=== PATIENT | female | born 1995 | race African-American/Black ===

== ENCOUNTER 2016-07-12 12:38 | Emergency (ER) | payer MEDICAID ==
[~2016-07-12] VITALS: Ht 149.9 cm; Wt 68.2 kg
[~2016-07-12 12:38] MED LIST: AUGM875T PO; DICL75TA PO
[2016-07-12 12:39] VITALS: BP 134/78; PULSE 93; RESP 14; TEMP 98.4; O2SAT 98
--- NOTE | 2016-07-12 13:48 | PD ---
HPI Chief Complaint: Related Problem Time Seen by Provider: 13:33 Travel History International Travel<30 days: No Contact w/Intl Traveler<30days: No Traveled to known affect area: No History of Present Illness HPI 20-year-old never female presents to the emergency department complaining of nausea, from urination, feeling tired, and having a positive test at home. She should for tests are positive. Her Last menstrual period was June 26. She states she took a test because she had a little bit of abnormal spotting on July 09. She came in today because her mom encourage her to see if she was or not. History Past Medical History Medical History: Denies Significant Hx LMP: 06/26/2016 Social History Alcohol Use: No Tobacco Use: No Allergies-Medications (Allergen,Severity, Reaction): Coded Allergies: No Known Allergies (Unverified , 07/12/16) Reported Meds & Prescriptions Reported Meds & Active Scripts Active Augmentin (Amoxicillin-Clavulanate) 875-125 mg Tab 875 Mg PO BID 10 Days not for use in CrCl <30 ml/min. Diclofenac Sodium DR (Diclofenac Sodium) 75 Mg Tabdr 75 Mg PO Q8HR PRN Review of Systems Except as stated in HPI: all other systems reviewed are Neg Physical Exam Narrative GENERAL: Well-appearing 20-year-old woman, no acute distress. SKIN: Warm and dry. CV: Warm and well perfused Pulmonary: Normal rate and effort Abdominal: Abdomen soft, nontender. Data Data Last Documented VS Vital Signs Date Time Temp Pulse Resp B/P Pulse Ox O2 Delivery O2 Flow Rate FiO2 07/12/16 12:39 98.4 93 14 134/78 98 Room Air Orders Ed Urine Pregnancytest Poc (07/12/16 13:35) [facility] Medical Decision Making Medical Screen Exam Complete: Yes Emergency Medical Condition: Yes Interpretation(s) [id number] hCG is negative Differential Diagnosis , cervicitis, UTI, anxiety, other Narrative Course Medical decision making 20-year-old young woman presents emergent department complaining that she may be . Point of care is negative. Patient is requesting a blood test, I don't think is any indication for this. Recommend repeat urine test in one week. We'll check urine, GC chlamydia. Diagnosis Primary Impression: Possible Additional Instructions: Repeat home test in one week. If follow-up with your primary physician. Return to the emergency department for any abdominal pain, or any other new or worsening symptoms. Med/Other Pt SpecificInfo: No Change to Meds Disposition: 01 DISCHARGE HOME Condition: Stable Golden Be MD Jul 12, 2016 13:48
[2016-07-12 14:16] LABS: BACTERIA, URINE FEW /hpf; COMMENT (UR) CULT NOT INDICATED; CULTURE IF INDICATED CULT NOT INDICATED; GLUCOSE,URINE NEG (NEG); KETONE, URINE NEG (NEG); MUCUS URINE FEW /lpf (OCC); NITRITE,URINE NEG (NEG); PH, URINE 7.5 (5.0-8.5); SQUAMOUS EPITHELIAL CELL URINE 24 /hpf (0-5); TRANSITIONAL EPI CELLS, URINE <1 /hpf; URINE COLOR YELLOW (YELLW/STRAW)
[2016-07-12 14:17] LABS: BLOOD, URINE TRACE (NEG)
[2016-07-12 14:31] VITALS: BP 129/74; PULSE 87; RESP 16; TEMP 98.4; O2SAT 98
[2016-07-12 17:34] LABS: CHLAMYDIA PCR NOT DETECTED (NOT DETECT); NEISSERIA PCR NOT DETECTED (NOT DETECT)
== END 2016-07-12 14:33 | disposition home or self-care (01) ==
LOC: NEPE 12:38
DX: R11.0 Nausea (principal)
CPT/HCPCS: 81001; 84703; 87491; 87591; 99284

== ENCOUNTER 2016-07-20 07:26 | Emergency (ER) | payer MEDICAID ==
[~2016-07-20] VITALS: Ht 149.9 cm; Wt 73.0 kg
[2016-07-20 07:28] VITALS: BP 124/65; PULSE 118; RESP 18; TEMP 99.5; O2SAT 95
--- NOTE | 2016-07-20 08:04 | PD ---
HPI Chief Complaint: ENT Complaint Time Seen by Provider: 08:02 Travel History International Travel<30 days: No Contact w/Intl Traveler<30days: No Traveled to known affect area: No History of Present Illness HPI Patient comes in for evaluation of a sore throat that began yesterday. Patient denies any known fevers, nausea, vomiting, diarrhea, pain, chest pain, shortness of breath, or cough. Patient's pain is worse with swallowing. Denies anything making it better but has tried drinking tea and sucking on peppermints. Denies any radiation of the pain. Describes pain as a scratching- like sensation in her throat. PFSH Past Medical History Hx Anticoagulant Therapy: No Cardiovascular Problems: No Chemotherapy: No Cerebrovascular Accident: No Diabetes: No Diminished Hearing: No Endocrine: No Genitourinary: No Immune Disorder: No Implanted Vascular Access Dvce: No Musculoskeletal: No Neurologic: No Psychiatric: No Respiratory: No Immunizations Current: Yes ?: Unknown LMP: 06/26/16 Past Surgical History Hysterectomy: No Tonsillectomy: Yes Other Surgery: Yes (RIGHT ARM ARTERY REPAIR WITH LEFT LEG SVG) Social History Alcohol Use: No Tobacco Use: No Substance Use: Yes (MARIJUANA 2X DAY) Allergies-Medications (Allergen,Severity, Reaction): Coded Allergies: No Known Allergies (Unverified , 07/20/16) Reported Meds & Prescriptions Reported Meds & Active Scripts Active Augmentin (Amoxicillin-Clavulanate) 875-125 mg Tab 875 Mg PO BID 10 Days not for use in CrCl <30 ml/min. Diclofenac Sodium DR (Diclofenac Sodium) 75 Mg Tabdr 75 Mg PO Q8HR PRN Review of Systems Except as stated in HPI: all other systems reviewed are Neg Physical Exam Narrative GENERAL: Well-developed, overly nourished, in no acute distress, and non-ill appearing. SKIN: Warm and dry. HEAD: Atraumatic. Normocephalic. EYES: Pupils equal and round. EOMI. No scleral icterus. No injection or drainage. ENT: No nasal bleeding or discharge. Mucous membranes pink and moist. Tympanic membranes pearly lemus bilaterally. Posterior pharynx mildly erythematous without exudate. Uvula is midline. No tenderness to facial sinuses to palpation. Patient speaking in full sentences and swallowing her own saliva. NECK: Trachea midline. No cervical lymphadenopathy. Supple. No nuclear rigidity. CARDIOVASCULAR: Regular rate and rhythm. No murmur appreciated. RESPIRATORY: No accessory muscle use. No respiratory distress. Clear to auscultation. Breath sounds equal bilaterally. MUSCULOSKELETAL: No obvious deformities. No clubbing. No cyanosis. No edema. Full range of motion. NEUROLOGICAL: Awake and alert. No obvious cranial nerve deficits. Motor grossly within normal limits. Normal speech. PSYCHIATRIC: Appropriate mood and affect; insight and judgment normal. Data Data Last Documented VS Vital Signs Date Time Temp Pulse Resp B/P Pulse Ox O2 Delivery O2 Flow Rate FiO2 07/20/16 07:28 99.5 118 18 124/65 95 Room Air Orders Group A Rapid Strep Screen (07/20/16 08:01) Strep Culture (Group A) (07/20/16 08:20) Naproxen (Naprosyn) (07/20/16 09:15) MDM Medical Decision Making Medical Screen Exam Complete: Yes Emergency Medical Condition: Yes Differential Diagnosis Strep pharyngitis, viral pharyngitis, viral syndrome, other Narrative Course Patient looks great, non-ill appearing. The patient is tolerating fluids and is well hydrated. Appears viral pharyngitis with viral symptom complex. No clinical evidence by history or evaluation to suspect meningitis and/or sepsis. There was no evidence to suggest peritonsillar abscess or retropharyngeal abscess. I discussed with the patient, diagnosis, plan of care and to follow up with the patients primary physician. The patient was instructed to return if the worsens in anyway, especially if not tolerating fluids, increased pain or swelling, difficulty swallowing or breathing, or as needed. The patient agreed with plan. Patient in no obvious distress upon re-evaluation. All pertinent laboratory result(s) discussed with patient. Patient was asked if they wanted to speak to my attending, which the patient did not wish to do at this time. Any questions/ concerns in reference to patient diagnosis/condition discussed and clarified prior to patient's discharge. Reinforced sheer importance of close follow up with patient's primary physician or primary care clinic. Instructed patient to return to ED immediately, if symptoms return/worsen. Pt showed understanding of above instructions. Further instructions and recommendations were detailed in discharge paperwork. Pt ambulated without difficulty out of ED at discharge. Diagnosis Primary Impression: Viral pharyngitis Patient Instructions: General Instructions, Pharyngitis (ED) Additional Instructions: Follow-up with your primary care physician this week for reevaluation. Use over -the-counter Tylenol and/or ibuprofen as needed for symptomatic relief. Drink plenty of non-caffeinated and nonalcoholic fluids. Return to the emergency department if symptoms get worse. Disposition: 01 DISCHARGE HOME Condition: Stable Tong Lanier Jul 20, 2016 08:04
[2016-07-20] MEDS ORDERED: NAPROXEN 500 MG TAB PO ONE (09:15)
== END 2016-07-20 09:22 | disposition home or self-care (01) ==
LOC: NEPB 07:26
DX: J02.9 Acute pharyngitis, unspecified (principal)
CPT/HCPCS: 87081; 87880; 99283

== ENCOUNTER 2016-09-06 09:01 | Emergency (ER) | payer MEDICAID ==
[~2016-09-06] VITALS: Ht 149.9 cm; Wt 82.0 kg
[2016-09-06 09:02] VITALS: BP 116/64; PULSE 89; RESP 15; TEMP 98.2; O2SAT 98
[2016-09-06] MEDS ORDERED: PREN29TA PO (09:22)
--- NOTE | 2016-09-06 09:33 | PD ---
HPI Chief Complaint: Cold / Flu Symptoms Time Seen by Provider: 09:15 Travel History International Travel<30 days: No Contact w/Intl Traveler<30days: No Traveled to known affect area: No History of Present Illness HPI This is a 20-year-old female who presents today with complaints of 2 weeks of cough congestion. Patient also reports darker colored urine than normal. She states that she's not eating well because of the cough. She denies any fevers but does state she has slight chills. There are no ill contacts. Eyes a history of asthma or reactive airway disease. She denies any vaginal discharge or vaginal bleeding. She does report loose bowel movements but no true diarrhea. PFSH Past Medical History Medical History: Denies Significant Hx Hx Anticoagulant Therapy: No Cardiovascular Problems: No Chemotherapy: No Cerebrovascular Accident: No Diabetes: No Diminished Hearing: No Endocrine: No Genitourinary: No Immune Disorder: No Implanted Vascular Access Dvce: No Musculoskeletal: No Neurologic: No Psychiatric: No Respiratory: No Immunizations Current: Yes Tetanus Vaccination: > 5 Years Influenza Vaccination: No ?: Not LMP: 08/24/16 : 1 Para: 0 Miscarriage: 1 : 0 Past Surgical History Hysterectomy: No Tonsillectomy: Yes Other Surgery: Yes (RIGHT ARM ARTERY REPAIR WITH LEFT LEG SVG) Social History Alcohol Use: Yes (RARELY ) Tobacco Use: No Substance Use: Yes (MARIJUANA SOME DAYS) Allergies-Medications (Allergen,Severity, Reaction): Coded Allergies: No Known Allergies (Unverified , 09/06/16) Reported Meds & Prescriptions Reported Meds & Active Scripts Active Guaifenesin Liq (Guaifenesin) 100 mg/5 ML Soln 100 Mg PO Q6H PRN Zithromax Z-Yaniv (Azithromycin) 250 Mg Dspk 250 Mg PO DIRECTED 500 MG (2 tabs) day 1, then 1 tab days 2-5. Reported Plus Iron 29-1 mg ( Vit-Iron Carbonyl) 1 Tab Tab 1 Tab PO DAILY Review of Systems Except as stated in HPI: all other systems reviewed are Neg General / Constitutional: Positive: Chills, No: Fever HENT: No: Headaches, Lightheadedness Cardiovascular: No: Chest Pain or Discomfort, Palpitations Respiratory: Positive: Cough, Wheezing Gastrointestinal: Positive: Nausea, Vomiting, Diarrhea (loose bowel movements) , No: Abdominal Pain Genitourinary: Positive: Frequency, Other (her urine than normal), No: Discharge, Vaginal Bleeding Musculoskeletal: No: Weakness, Pain Skin: No Rash Neurologic: No: Weakness, Headache Physical Exam Narrative GENERAL: Well-nourished, well-developed patient. SKIN: Warm and dry. HEAD: Normocephalic/atraumatic. EYES: No scleral icterus. No injection or drainage. NECK: Supple, trachea midline. CARDIOVASCULAR: Regular rate and rhythm without murmurs, gallops, or rubs. RESPIRATORY: Diffuse expiratory wheezing in the upper and lower airways. No Rales appreciated GASTROINTESTINAL: Abdomen soft, non-tender, nondistended. MUSCULOSKELETAL: No cyanosis, or edema. NEUROLOGICAL: Awake and alert. Cranial nerves II through XII intact. Motor grossly within normal limits. Five out of 5 muscle strength in all muscle groups. Normal speech. Data Data Last Documented VS Vital Signs Date Time Temp Pulse Resp B/P Pulse Ox O2 Delivery O2 Flow Rate FiO2 09/06/16 11:00 95 18 112/74 97 Room Air 09/06/16 09:02 98.2 Orders Complete Blood Count With Diff (09/06/16 09:33) Comprehensive Metabolic Panel (09/06/16 09:33) Urinalysis - C+S If Indicated (09/06/16 09:33) Iv Access Insert/Monitor (09/06/16 09:33) Ecg Monitoring (09/06/16 09:33) Oximetry (09/06/16 09:33) Oxygen Administration (09/06/16 09:33) Chest, Single Ap (09/06/16 09:33) Sodium Chloride 0.9% Flush (Ns Flush) (09/06/16 09:45) Albuterol-Ipratropium Neb (Duoneb Neb) (09/06/16 09:45) Albuterol Neb (Albuterol Neb) (09/06/16 09:45) Ed Urine Pregnancytest Poc (09/06/16 09:33) Labs Laboratory Tests Test 09/06/16 09/06/16 09:40 09:45 Urine Color YELLOW Urine Turbidity HAZY Urine pH 6.0 Urine Specific [place] 1.031 Urine Protein 30 mg/dL Urine Glucose (UA) NEG mg/dL Urine Ketones NEG mg/dL Urine Occult Blood SMALL Urine Nitrite NEG Urine Bilirubin NEG Urine Urobilinogen 2.0 MG/DL Urine Leukocyte Esterase NEG Urine RBC 12 /hpf Urine WBC 1 /hpf Urine Squamous Epithelial 9 /hpf Cells Urine Bacteria RARE /hpf Urine Hyaline Casts 1 /lpf Urine Mucus MOD /lpf Microscopic Urinalysis Comment CULT NOT INDICATED White Blood Count 8.7 TH/MM3 Red Blood Count 4.68 MIL/MM3 Hemoglobin 12.7 GM/DL Hematocrit 38.7 % Mean Corpuscular Volume 82.7 FL Mean Corpuscular Hemoglobin 27.1 PG Mean Corpuscular Hemoglobin 32.7 % Concent Red Cell Distribution Width 14.8 % Platelet Count 262 TH/MM3 Mean Platelet Volume 9.7 FL Neutrophils (%) (Auto) 69.2 % Lymphocytes (%) (Auto) 20.0 % Monocytes (%) (Auto) 8.2 % Eosinophils (%) (Auto) 2.2 % Basophils (%) (Auto) 0.4 % Neutrophils # (Auto) 6.0 TH/MM3 Lymphocytes # (Auto) 1.7 TH/MM3 Monocytes # (Auto) 0.7 TH/MM3 Eosinophils # (Auto) 0.2 TH/MM3 Basophils # (Auto) 0.0 TH/MM3 CBC Comment DIFF FINAL Differential Comment Sodium Level 138 MEQ/L Potassium Level 3.8 MEQ/L Chloride Level 105 MEQ/L Carbon Dioxide Level 26.0 MEQ/L Anion Gap 7 MEQ/L Blood Urea Nitrogen 8 MG/DL Creatinine 0.81 MG/DL Estimat Glomerular Filtration 110 ML/MIN Rate Random Glucose 92 MG/DL Calcium Level 8.8 MG/DL Total Bilirubin 0.6 MG/DL Aspartate Amino Transf 18 U/L (AST/SGOT) Alanine Aminotransferase 21 U/L (ALT/SGPT) Alkaline Phosphatase 82 U/L Total Protein 8.5 GM/DL Albumin 3.8 GM/DL [facility] Medical Decision Making Medical Screen Exam Complete: Yes Emergency Medical Condition: Yes Differential Diagnosis Bronchitis versus pneumonia versus postnasal drip Narrative Course 20-year-old female presents with URI-type symptoms. Patient's had cough with congestion 2 weeks. The patient is afebrile. On examination, she has coarse rhonchi however chest x-ray shows no evidence of acute infiltrates. Given the longevity of her symptoms, I will treat her with azithromycin Z-Yaniv. She's also been given a prescription for guaifenesin for cough. Diagnosis Primary Impression: Bronchitis Med/Other Pt SpecificInfo: Prescription(s) given Scripts Guaifenesin Liq 100 mg/5 ML [id number] Mg PO Q6H PRN (COUGH) #1 BOTTLE Ref 0 Prov:Yunier Duffy MD 09/06/16 Azithromycin (Zithromax Z-Yaniv)250 Mg [id number] Mg PO DIRECTED #1 DSPK Ref 0 500 MG (2 tabs) day 1, then 1 tab days 2-5. Prov:Yunier Duffy MD 09/06/16 Disposition: 01 DISCHARGE HOME Condition: Stable Yunier Duffy MD Sep 06, 2016 09:33 Condition: Stable Yunier Duffy MD Sep 06, 2016 09:33
[2016-09-06] MEDS ORDERED: SODIUM CHLORIDE 0.9% FLUSH 5 ML FLUSH IVF PRN (09:45)
[2016-09-06] MEDS: RESP: ALBUTEROL 2.5 MG/IPRATROPIUM 0.5 MG NEB (SCH) INH ×2 (09:49→09:50)
--- NOTE | 2016-09-06 09:56 | RADRPT ---
EXAM DATE/TIME: 09/06/2016 09:31 [place] COMPARISON: CHEST SINGLE AP, June 10, 2016, 17:01. INDICATIONS : Short of breath, cough, tightness in chest, vomiting, abdominal cramping. MEDICAL HISTORY : None. SURGICAL HISTORY : None. ENCOUNTER: Initial ACUITY: 3 weeks PAIN SCORE: 8/10 LOCATION: Bilateral chest FINDINGS: A single view of the chest demonstrates the lungs to be symmetrically aerated without evidence of mas s, infiltrate or effusion. The cardiomediastinal contours are unremarkable. Osseous structures are intact. CONCLUSION: No acute disease. Everton Thomas MD on September 06, 2016 at 9:55 Board Certified Radiologist. This report was verified electronically.
[2016-09-06 10:03] LABS: BASOPHIL % 0.4 % (0.0-2.0); EOSINOPHIL # 0.2 TH/MM3 (0-0.4); EOSINOPHIL % 2.2 % (0.0-4.0); HEMATOCRIT 38.7 % (35.0-46.0); HEMO FLAGS DIFF FINAL; LYMPHOCYTE # 1.7 TH/MM3 (1.0-4.8); MEAN CELL VOLUME 82.7 FL (80.0-100.0); MEAN CORPUSCULAR HEMOGLOBIN 27.1 PG (27.0-34.0); MEAN CORPUSCULAR HGB CONC 32.7 % (32.0-36.0); MONO % 8.2 % (0.0-8.0); NEUT % 69.2 % (16.0-70.0); PLATELET COUNT 262 TH/MM3 (150-450); RED BLOOD COUNT 4.68 MIL/MM3 (4.00-5.30); RED CELL DISTRIBUTION WIDTH 14.8 % (11.6-17.2); WHITE BLOOD COUNT 8.7 TH/MM3 (4.0-11.0)
[2016-09-06 10:09] LABS: BACTERIA, URINE RARE /hpf; BLOOD, URINE SMALL (NEG); COMMENT (UR) CULT NOT INDICATED; CULTURE IF INDICATED CULT NOT INDICATED; GLUCOSE,URINE NEG (NEG); HYALINE CAST, URINE 1 /lpf (RARE); KETONE, URINE NEG (NEG); MUCUS URINE MOD /lpf (OCC); NITRITE,URINE NEG (NEG); SQUAMOUS EPITHELIAL CELL URINE 9 /hpf (0-5); URINE COLOR YELLOW (YELLW/STRAW)
[2016-09-06 10:24] LABS: ANION GAP 7 MEQ/L (5-15); AST (GOT) 18 U/L (16-38); BLOOD UREA NITROGEN 8 MG/DL (7-18); CHLORIDE 105 MEQ/L (98-107); GLOMERULAR FILTRATION RATE 110 ML/MIN (>89); POTASSIUM 3.8 MEQ/L (3.5-5.1); SODIUM (NA) 138 MEQ/L (136-145)
[2016-09-06 10:25] LABS: ALKALINE PHOSPHATASE 82 U/L (45-117); ALT (GPT) 21 U/L (9-42); TOTAL BILIRUBIN ADULT 0.6 MG/DL (0.2-1.0)
[2016-09-06 11:00] VITALS: BP 112/74; PULSE 95; RESP 18; O2SAT 97
[2016-09-06] MEDS ORDERED: ZITHTAB PO (11:12)
[2016-09-06] MEDS ORDERED: GUAI100S7 PO (11:12)
[2016-09-06] MEDS: RESP: ALBUTEROL 2.5 MG/3 ML NEB (SCH) INH (11:14)
== END 2016-09-06 11:58 | disposition home or self-care (01) ==
LOC: NEPC 09:01
DX: J40 Bronchitis, not specified as acute or chronic (principal)
CPT/HCPCS: 71010; 80053; 81001; 84703; 85025; 94640; 94664; 99283; J7613

== ENCOUNTER 2016-09-09 20:36 | Emergency (ER) | payer MEDICAID ==
[~2016-09-09] VITALS: Ht 149.9 cm; Wt 81.0 kg
[~2016-09-09 20:36] MED LIST changes: -AUGM875T PO; -DICL75TA PO; +GUAI100S7 PO; +PREN29TA PO; +ZITHTAB PO
[2016-09-09 20:51] VITALS: BP 117/77; PULSE 89; RESP 16; TEMP 98.1; O2SAT 98
[2016-09-10 01:05] VITALS: BP 125/87; PULSE 84; RESP 18; O2SAT 97
--- NOTE | 2016-09-10 01:23 | PD ---
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 Patient states that she has passed several large dark-colored clots. Patient also complains of generalized weakness and feeling lightheaded. Patient's last menstrual period was 08/24/16 and normal for her. Patient states she is sexually active and has been trying to become . Patient is 1 para 0 AB 1. Review of medical records indicates patient has been here several times with complaint of cramping and spotting and requesting test to be performed. Patient also states she did have an episode of posttussive emesis that she has been treated recently for bronchitis. Patient denies other concerns or complaints. Presently patient rates her pain 0/10 in intensity. PFSH Past Medical History Narrative Medical Ab1; vessel transposition left lower extremity to right upper extremity; no tobacco use; nursing notes reviewed Hx Anticoagulant Therapy: No Cardiovascular Problems: No Chemotherapy: No Cerebrovascular Accident: No Diabetes: No Diminished Hearing: No Endocrine: No Genitourinary: No Immune Disorder: No Implanted Vascular Access Dvce: No Musculoskeletal: No Neurologic: No Psychiatric: No Respiratory: No Immunizations Current: Yes Tetanus Vaccination: Unknown Influenza Vaccination: No ?: Unknown LMP: 08/24/16 : 1 Para: 0 Miscarriage: 1 : 0 Past Surgical History Hysterectomy: No Tonsillectomy: Yes Other Surgery: Yes (RIGHT ARM ARTERY REPAIR WITH LEFT LEG SVG) Social History Alcohol Use: Yes (RARELY ) Tobacco Use: No Substance Use: Yes (MARIJUANA SOME DAYS) Allergies-Medications (Allergen,Severity, Reaction): Coded Allergies: No Known Allergies (Unverified , 09/09/16) Reported Meds & Prescriptions Reported Meds & Active Scripts Active Metrogel Vaginal Gel (Metronidazole Vaginal Gel) 0.75 % Gel 1 Appl VAGINAL HS Reported Plus Iron 29-1 mg ( Vit-Iron Carbonyl) 1 Tab Tab 1 Tab PO DAILY Review of Systems Except as stated in HPI: all other systems reviewed are Neg Physical Exam Narrative GENERAL: Well-developed well-nourished female in no acute distress no respiratory distress SKIN: Warm and dry. HEAD: Normocephalic. EYES: No scleral icterus. No injection or drainage. NECK: Supple, trachea midline. No JVD or lymphadenopathy. CARDIOVASCULAR: Regular rate and rhythm without murmurs, gallops, or rubs. RESPIRATORY: Breath sounds equal bilaterally. No accessory muscle use. GASTROINTESTINAL: Abdomen soft, non-tender, nondistended. Pelvic exam: Normal external exam no redness induration or lesions and no blood; speculum exam scant old blood mucus no clots no active bleeding cervical os closed; bimanual exam no adnexal mass or tenderness no cervical motion tenderness no uterine enlargement or tenderness. MUSCULOSKELETAL: No cyanosis, or edema. BACK: Nontender without obvious deformity. No CVA tenderness. Data Data Last Documented VS Vital Signs Date Time Temp Pulse Resp B/P Pulse Ox O2 Delivery O2 Flow Rate FiO2 09/10/16 01:40 81 17 126/87 86 18 127/89 88 20 130/88 09/10/16 01:05 97 Room Air 09/09/16 20:51 98.1 Orders Complete Blood Count With Diff (09/10/16 01:04) Basic Metabolic Panel (Bmp) (09/10/16 01:04) Gc And Chlamydia Pcr (09/10/16 01:04) Wet Prep Profile (09/10/16 01:04) Urinalysis - C+S If Indicated (09/10/16 01:04) Ed Urine Pregnancytest Poc (09/10/16 01:04) Orthostatic Vital Signs (09/10/16 01:04) Potassium Chloride (Kcl) (09/10/16 02:30) Labs Laboratory Tests Test 09/10/16 09/10/16 09/10/16 01:10 01:20 01:25 Urine Color YELLOW Urine Turbidity CLEAR Urine pH 5.5 Urine Specific [place] 1.031 Urine Protein TRACE mg/dL Urine Glucose (UA) NEG mg/dL Urine Ketones 80 mg/dL Urine Occult Blood SMALL Urine Nitrite NEG Urine Bilirubin NEG Urine Urobilinogen LESS THAN 2.0 MG/DL Urine Leukocyte Esterase NEG Urine RBC 12 /hpf Urine WBC 2 /hpf Urine Squamous Epithelial 2 /hpf Cells Urine Mucus MANY /lpf Microscopic Urinalysis Comment CULT NOT INDICATED Clue Cells (Wet Prep) PRESENT Vaginal Trichomonas (Wet Prep) NONE SEEN Vaginal Yeast (Wet Prep) NONE SEEN White Blood Count 9.5 TH/MM3 Red Blood Count 4.76 MIL/MM3 Hemoglobin 13.3 GM/DL Hematocrit 39.1 % Mean Corpuscular Volume 82.2 FL Mean Corpuscular Hemoglobin 27.9 PG Mean Corpuscular Hemoglobin 33.9 % Concent Red Cell Distribution Width 14.3 % Platelet Count 299 TH/MM3 Mean Platelet Volume 9.3 FL Neutrophils (%) (Auto) 64.1 % Lymphocytes (%) (Auto) 27.0 % Monocytes (%) (Auto) 7.5 % Eosinophils (%) (Auto) 0.8 % Basophils (%) (Auto) 0.6 % Neutrophils # (Auto) 6.1 TH/MM3 Lymphocytes # (Auto) 2.6 TH/MM3 Monocytes # (Auto) 0.7 TH/MM3 Eosinophils # (Auto) 0.1 TH/MM3 Basophils # (Auto) 0.1 TH/MM3 CBC Comment DIFF FINAL Differential Comment Sodium Level 139 MEQ/L Potassium Level 3.3 MEQ/L Chloride Level 103 MEQ/L Carbon Dioxide Level 27.7 MEQ/L Anion Gap 8 MEQ/L Blood Urea Nitrogen 9 MG/DL Creatinine 0.75 MG/DL Estimat Glomerular Filtration 120 ML/MIN Rate Random Glucose 90 MG/DL Calcium Level 9.1 MG/DL MDM Medical Decision Making Medical Screen Exam Complete: Yes Emergency Medical Condition: Yes Medical Record Reviewed: Yes Interpretation(s) POC hcg: negative cbc: values all wnl CBC & BMP Diagram 09/10/16 01:25 Wet prep clue cells Differential Diagnosis Dysfunctional uterine bleeding, menses, , UTI, anemia Narrative Course Specimens collected; orthostatic measurements obtained; [id number] test ordered; we'll obtain CBC to evaluate for anemia orthostatic measurements to evaluate for volume status [id number] test to be performed to assess for specimens collected for wet prep GC and gonorrhea suspicion low for STI. Patient will be encouraged to follow-up with [facility] for evaluation for dysfunctional uterine bleeding and difficulty with becoming . Lab values grossly within normal range patient shows no evidence of inflammation and infection or anemia CBC chemistries are within normal limits except for mild hypokalemia and patient is given replacement potassium in the emergency department [id number] hCG is negative wet prep is remarkable for clue cells and patient is stable for a patient management with the setting measurements showed no significant variance supine sitting or standing. Patient informed of lab results in stable for outpatient management. Diagnosis Primary Impression: Dysfunctional uterine bleeding Additional Impressions: Vaginosis Hypokalemia Referrals: [facility] call for appointment Primary Care Physician call for appointment Patient Instructions: General Instructions Additional Instructions: Increase fluid hydration Add potassium containing foods and beverages to dietary intake Follow-up with your primary care physician and [facility] Return to the emergency department for any concerns or change in condition Scripts Metronidazole Vaginal Gel (Metrogel Vaginal Gel)0.75 % Gel1 Appl VAGINAL HS #1 TUBE Ref 0 Prov:Naomi Do MD 09/10/16 Disposition: DISCHARGE HOME Condition: Stable Naomi Do MD Sep 10, 2016 01:23
[2016-09-10 01:40] VITALS: BP_SYST 126; BP_SYST 130; BP_DIAS 87; BP_DIAS 88; RESP 17; RESP 20
[2016-09-10 01:42] LABS: AUTOMATED NEUTROPHIL # 6.1 TH/MM3 (1.8-7.7); BASOPHIL # 0.1 TH/MM3 (0-0.2); BASOPHIL % 0.6 % (0.0-2.0); EOSINOPHIL # 0.1 TH/MM3 (0-0.4); EOSINOPHIL % 0.8 % (0.0-4.0); HEMATOCRIT 39.1 % (35.0-46.0); HEMO FLAGS DIFF FINAL; LYMPHOCYTE # 2.6 TH/MM3 (1.0-4.8); MEAN CELL VOLUME 82.2 FL (80.0-100.0); MEAN CORPUSCULAR HEMOGLOBIN 27.9 PG (27.0-34.0); MEAN CORPUSCULAR HGB CONC 33.9 % (32.0-36.0); MONO % 7.5 % (0.0-8.0); NEUT % 64.1 % (16.0-70.0); PLATELET COUNT 299 TH/MM3 (150-450); RED BLOOD COUNT 4.76 MIL/MM3 (4.00-5.30); RED CELL DISTRIBUTION WIDTH 14.3 % (11.6-17.2); WHITE BLOOD COUNT 9.5 TH/MM3 (4.0-11.0)
[2016-09-10 01:57] LABS: BICARBONATE 27.7 MEQ/L (21.0-32.0); POTASSIUM 3.3 MEQ/L (3.5-5.1)
[2016-09-10 01:59] LABS: BLOOD, URINE SMALL (NEG); COMMENT (UR) CULT NOT INDICATED; CULTURE IF INDICATED CULT NOT INDICATED; GLUCOSE,URINE NEG (NEG); KETONE, URINE 80 mg/dL (NEG); MUCUS URINE MANY /lpf (OCC); NITRITE,URINE NEG (NEG); PH, URINE 5.5 (5.0-8.5); SQUAMOUS EPITHELIAL CELL URINE 2 /hpf (0-5); URINE COLOR YELLOW (YELLW/STRAW)
[2016-09-10] MEDS ORDERED: METR0.7528 VAGINAL (02:19)
[2016-09-10] MEDS ORDERED: POTASSIUM CHLORIDE 20 MEQ CONTROLLED RELEASE TAB PO ONE (02:30)
[2016-09-10 02:35] VITALS: BP 115/78
[2016-09-10 03:20] LABS: CHLAMYDIA PCR DETECTED (NOT DETECT); NEISSERIA PCR NOT DETECTED (NOT DETECT)
== END 2016-09-10 02:35 | disposition home or self-care (01) ==
LOC: NEPC 20:36
DX: N93.8 Other specified abnormal uterine and vaginal bleeding (principal); N76.0 Acute vaginitis; E87.6 Hypokalemia
CPT/HCPCS: 80048; 81001; 84703; 85025; 87210; 87491; 87591; 99283

== ENCOUNTER 2017-06-22 18:37 | Emergency (ER) | payer MEDICAID ==
[~2017-06-22] VITALS: Ht 149.9 cm; Wt 77.5 kg
[~2017-06-22 18:37] MED LIST changes: -GUAI100S7 PO; +METR0.7528 VAGINAL; -ZITHTAB PO
[2017-06-22 18:39] VITALS: BP 131/74; PULSE 86; RESP 14; TEMP 98.4; O2SAT 99
[2017-06-22] MEDS ORDERED: SODIUM CHLOR 0.9% 1000 ML INJ 1,000 ML IV ONE (19:30)
[2017-06-22] MEDS ORDERED: ONDANSETRON HCL 4 MG/2 ML VIAL IV ONE (19:30)
--- NOTE | 2017-06-22 19:31 | PD ---
HPI Chief Complaint: GI Complaint Time Seen by Provider: 18:56 Travel History International Travel<30 days: No Contact w/Intl Traveler<30days: No Traveled to known affect area: No History of Present Illness HPI The patient was seen and examined in the presence of the nurse. This patient complains of nausea vomiting diarrhea. Duration 2 days. Severity is moderate. She has no fever or abdominal pain. No alleviating factors. No ill contacts. No exacerbating factors. sHe is worried about being dehydrated. PFSH Past Medical History Medical History: Denies Significant Hx Hx Anticoagulant Therapy: No Cardiovascular Problems: No Chemotherapy: No Cerebrovascular Accident: No Diabetes: No Diminished Hearing: No Endocrine: No Genitourinary: No Immune Disorder: No Implanted Vascular Access Dvce: No Musculoskeletal: No Neurologic: No Psychiatric: No Respiratory: No Immunizations Current: Yes ?: Not LMP: 06/21/17 : 1 Para: 0 Miscarriage: 1 : 0 Past Surgical History Hysterectomy: No Tonsillectomy: Yes Other Surgery: Yes (RIGHT ARM ARTERY REPAIR WITH LEFT LEG SVG) Social History Alcohol Use: Yes (RARELY ) Tobacco Use: No Substance Use: Yes (MARIJUANA SOME DAYS) Allergies-Medications (Allergen,Severity, Reaction): Coded Allergies: No Known Allergies (Unverified Adverse Reaction, Unknown, 06/22/17) Reported Meds & Prescriptions Reported Meds & Active Scripts Active Zofran (Ondansetron HCl) 4 Mg Tab 4 Mg PO Q6HR PRN Review of Systems General / Constitutional: No: Fever Eyes: No: Visual changes HENT: No: Headaches Cardiovascular: No: Chest Pain or Discomfort Respiratory: No: Shortness of Breath Gastrointestinal: Positive: Nausea, Vomiting, Diarrhea Genitourinary: No: Dysuria Musculoskeletal: No: Pain Skin: No Rash Neurologic: No: Weakness Psychiatric: No: Depression Endocrine: No: Polydipsia Hematologic/Lymphatic: No: Easy Bruising Physical Exam Narrative GENERAL: Well-nourished, well-developed patient in no apparent distress. SKIN: Focused skin assessment reveals no rash and nodules. Skin is Warm and dry. HEAD: Atraumatic. Normocephalic. EYES: Pupils equal and round. No scleral icterus. No injection or drainage. ENT: No nasal bleeding or discharge. Mucous membranes pink and moist. NECK: Trachea midline. No JVD. CARDIOVASCULAR: Regular rate and rhythm. No murmur appreciated. RESPIRATORY: No accessory muscle use. Clear to auscultation. Breath sounds equal bilaterally. GASTROINTESTINAL: Abdomen soft, non-tender, nondistended. Hepatic and splenic margins not palpable. MUSCULOSKELETAL: No obvious deformities. No clubbing. No cyanosis. No edema. NEUROLOGICAL: Awake and alert. No obvious cranial nerve deficits. Motor grossly within normal limits. Normal speech. PSYCHIATRIC: Appropriate mood and affect; insight and judgment normal. Data Data Last Documented VS Vital Signs Date Time Temp Pulse Resp B/P (MAP) Pulse Ox O2 Delivery O2 Flow Rate FiO2 06/22/17 18:39 98.4 86 14 131/74 (93) 99 Orders Orders Ondansetron Inj (Zofran Inj) (06/22/17 19:30) Sodium Chlor 0.9% 1000 Ml Inj (Ns 1000 M (06/22/17 19:30) Iv Access Insert/Monitor (06/22/17 19:22) Ed Urine Pregnancytest Poc (06/22/17 19:22) Complete Blood Count With Diff (06/22/17 19:22) Basic Metabolic Panel (Bmp) (06/22/17 19:22) Ed Discharge Order (06/22/17 21:26) Labs Laboratory Tests Test 06/22/17 19:20 White Blood Count 10.7 TH/MM3 Red Blood Count 4.51 MIL/MM3 Hemoglobin 13.2 GM/DL Hematocrit 38.7 % Mean Corpuscular Volume 85.9 FL Mean Corpuscular Hemoglobin 29.3 PG Mean Corpuscular Hemoglobin Concent 34.1 % Red Cell Distribution Width 12.8 % Platelet Count 277 TH/MM3 Mean Platelet Volume 9.9 FL Neutrophils (%) (Auto) 79.1 % Lymphocytes (%) (Auto) 13.6 % Monocytes (%) (Auto) 6.7 % Eosinophils (%) (Auto) 0.2 % Basophils (%) (Auto) 0.4 % Neutrophils # (Auto) 8.5 TH/MM3 Lymphocytes # (Auto) 1.5 TH/MM3 Monocytes # (Auto) 0.7 TH/MM3 Eosinophils # (Auto) 0.0 TH/MM3 Basophils # (Auto) 0.0 TH/MM3 CBC Comment DIFF FINAL Differential Comment Blood Urea Nitrogen 8 MG/DL Creatinine 0.61 MG/DL Random Glucose 84 MG/DL Calcium Level 8.4 MG/DL Sodium Level 137 MEQ/L Potassium Level 3.3 MEQ/L Chloride Level 103 MEQ/L Carbon Dioxide Level 27.0 MEQ/L Anion Gap 7 MEQ/L Estimat Glomerular Filtration Rate 151 ML/MIN [facility] Medical Decision Making Medical Screen Exam Complete: Yes Emergency Medical Condition: Yes Medical Record Reviewed: Yes Differential Diagnosis Gastroenteritis, food poisoning, colitis Narrative Course I have reviewed the patient's electronic medical record. IV placed I gave her IV Zofran 1 L normal saline IV bolus CBC is normal Metabolic profile is normal except for minimal hypokalemia and not requiring treatment Abdomen is soft and benign and nontender Urine is negative Zofran prescribed Gradual resolution is expected Most likely viral gastroenteritis Diagnosis Primary Impression: Nausea vomiting and diarrhea Additional Instructions: The patient was advised to follow up with their physician and return if they worsen. I have recommended clear liquids for 24 hours, then gradually advance as tolerated. Med/Other Pt SpecificInfo: Other Scripts Ondansetron (Zofran) 4 Mg Tab 4 MG PO Q6HR Y for NAUSEA OR VOMITING, #12 TAB 0 Refills Prov: Pk Lea MD 06/22/17 Disposition: DISCHARGE HOME Condition: Stable Pk Lea MD Jun 22, 2017 19:31
[2017-06-22 20:16] LABS: AUTOMATED NEUTROPHIL # 8.5 TH/MM3 (1.8-7.7); BASOPHIL % 0.4 % (0.0-2.0); EOSINOPHIL % 0.2 % (0.0-4.0); HEMATOCRIT 38.7 % (35.0-46.0); HEMO FLAGS DIFF FINAL; LYMPH % 13.6 % (9.0-44.0); LYMPHOCYTE # 1.5 TH/MM3 (1.0-4.8); MEAN CELL VOLUME 85.9 FL (80.0-100.0); MEAN CORPUSCULAR HEMOGLOBIN 29.3 PG (27.0-34.0); MEAN CORPUSCULAR HGB CONC 34.1 % (32.0-36.0); MONO % 6.7 % (0.0-8.0); NEUT % 79.1 % (16.0-70.0); PLATELET COUNT 277 TH/MM3 (150-450); RED BLOOD COUNT 4.51 MIL/MM3 (4.00-5.30); RED CELL DISTRIBUTION WIDTH 12.8 % (11.6-17.2); WHITE BLOOD COUNT 10.7 TH/MM3 (4.0-11.0)
[2017-06-22 20:42] LABS: POTASSIUM 3.3 MEQ/L (3.5-5.1)
[2017-06-22] MEDS ORDERED: ZOFR4TAB PO (21:27)
== END 2017-06-22 21:30 | disposition home or self-care (01) ==
LOC: NEPD 18:37
DX: R11.2 Nausea with vomiting, unspecified (principal); R19.7 Diarrhea, unspecified; E87.6 Hypokalemia
CPT/HCPCS: 80048; 84703; 85025; 96361; 96374; 99284; J2405; J7030

== ENCOUNTER 2017-07-23 22:47 | Emergency (ER) | payer SELFPAY, MEDICAID | END 2017-07-24 00:41 | disposition home or self-care (01) | LOC: NEPD 22:47 | DX: J02.8 Acute pharyngitis due to other specified organisms (principal); B97.89 Other viral agents as the cause of diseases classified elsewhere | CPT/HCPCS: 84703; 87081; 87804; 87804-59; 87880; 99283 ==

== ENCOUNTER 2017-09-16 01:02 | Emergency (ER) | payer OTHER ==
[2017-09-16 01:49] VITALS: BP 129/61; PULSE 92; RESP 16; TEMP 98.3; O2SAT 99
--- NOTE | 2017-09-16 03:18 | PD ---
HPI Chief Complaint: Nosebleed Time Seen by Provider: 03:15 Travel History International Travel<30 days: No Contact w/Intl Traveler<30days: No Traveled to known affect area: No History of Present Illness HPI 21-year-old female presents with nosebleed reportedly after smelling a perfume at work. Patient states was having bilateral nostril bleeding. Patient denies any digital manipulation or trauma to the nose except reportedly she did hit her nose against the perfume container accidentally. Patient denies other concerns or complaints. PFSH Past Medical History Hx Anticoagulant Therapy: No Cardiovascular Problems: No Chemotherapy: No Cerebrovascular Accident: No Diabetes: No Diminished Hearing: No Endocrine: No Gastrointestinal Disorders: No Genitourinary: No Immune Disorder: No Implanted Vascular Access Dvce: No Musculoskeletal: No Neurologic: No Psychiatric: No Respiratory: No Immunizations Current: Yes ?: Unknown : 1 Para: 0 Miscarriage: 1 : 0 Past Surgical History Hysterectomy: No Tonsillectomy: Yes Other Surgery: Yes (RIGHT ARM ARTERY REPAIR WITH LEFT LEG SVG) Social History Alcohol Use: Yes (RARELY ) Tobacco Use: No Substance Use: Yes (MARIJUANA SOME DAYS) Allergies-Medications (Allergen,Severity, Reaction): Coded Allergies: No Known Allergies (Unverified , 09/16/17) Reported Meds & Prescriptions Reported Meds & Active Scripts Active No Active Prescriptions or Reported Medications Review of Systems Except as stated in HPI: all other systems reviewed are Neg General / Constitutional: No: Fever, Chills HENT: Positive: Congestion, Nosebleed Cardiovascular: No: Chest Pain or Discomfort Respiratory: No: Shortness of Breath Gastrointestinal: No: Vomiting, Diarrhea Genitourinary: No: Dysuria Musculoskeletal: No: Myalgias, Arthralgias Skin: No Rash Neurologic: No: Weakness, Dizziness, Syncope Psychiatric: No: Anxiety Hematologic/Lymphatic: No: Easy Bruising Physical Exam Narrative GENERAL: Well-developed well-nourished female no acute distress no respiratory distress SKIN: Warm and dry. HEAD: Normocephalic. EYES: No scleral icterus. No injection or drainage. ENT: Patient noted to have pink tinged stain around the mouth and nose scant dried blood no active bleeding bilateral nares with scant dried blood no clots no abrasion no laceration no visualized foreign body; posterior pharynx airway is patent no active bleeding no posterior pharyngeal thrombus. NECK: Supple, trachea midline. No JVD or lymphadenopathy. CARDIOVASCULAR: Regular rate and rhythm without murmurs, gallops, or rubs. RESPIRATORY: Breath sounds equal bilaterally. No accessory muscle use. GASTROINTESTINAL: Abdomen soft, non-tender, nondistended. Data Data Last Documented VS Vital Signs Date Time Temp Pulse Resp B/P (MAP) Pulse Ox O2 Delivery O2 Flow Rate FiO2 09/16/17 01:49 98.3 92 16 129/61 (83) 99 Orders Orders Ed Discharge Order (09/16/17 03:18) MDM Medical Decision Making Medical Screen Exam Complete: Yes Emergency Medical Condition: Yes Medical Record Reviewed: Yes Differential Diagnosis Epistaxis, sinusitis, chemical rhinitis, mucosal trauma, anemia, coagulopathy Narrative Course Patient's presents with reported epistaxis after bumping her nose against a perfume bottle while she was trying to inhale the sent and then noticing irritation of the nose and mucous membranes and reportedly had epistaxis subsequently. Patient has pink tinged dire stain around the mouth and nose that spares the oral airway. Patient is in no respiratory distress. There is no active bleeding. Vital signs are otherwise stable. Patient is stable for outpatient management. Diagnosis Primary Impression: Epistaxis Referrals: Primary Care Physician 1 day Patient Instructions: General Instructions Departure Forms: Tests/Procedures, Work Release Special Instructions: No work 1 day Additional Instructions: May use [id number] Afrin nasal decongestant spray per package directions May use saline nose drops spray as needed to keep mucous membranes moist Avoid blowing her nose or any digital manipulation of the mucous membrane of the nose Apply direct pressure for recurrent nosebleed Return to the emergency department for any concerns or change in condition Follow-up with your primary care provider call office to schedule appointment No work 1 day Avoid nonsteroidal anti-inflammatory medication such as Aleve Advil Motrin for the next 5 days Scripts No Active Prescriptions or Reported Meds Disposition: 01 DISCHARGE HOME Condition: Stable Naomi Do MD Sep 16, 2017 03:18
== END 2017-09-16 03:35 | disposition home or self-care (01) ==
LOC: NEPC 01:02
DX: R04.0 Epistaxis (principal); F12.90 Cannabis use, unspecified, uncomplicated
CPT/HCPCS: 99282

== ENCOUNTER 2017-10-02 16:56 | Emergency (ER) | payer MEDICAID ==
[2017-10-02 17:00] VITALS: BP 140/70; PULSE 94; RESP 18; TEMP 98.6; O2SAT 99
--- NOTE | 2017-10-02 18:37 | PD ---
HPI Chief Complaint: Bleeding Time Seen by Provider: 18:16 Travel History International Travel<30 days: No Contact w/Intl Traveler<30days: No Traveled to known affect area: No History of Present Illness HPI Patient comes in stating that her last menstrual period was August 19 and is very regular and her periods. Earlier in the month she was seen by physician who told her that she was and she believes that she may be about for 5 weeks now. While at work patient started to have some vaginal spotting and bleeding, along with some suprapubic cramping pressure rated as about a 4 5 out of 10. Denies alleviating or aggravating factors. Denies any associated factors such as flank pain, back pain, chest pain, headache neck pain , rash, nausea, vomiting, diarrhea. No known drug allergies Past medical history significant only for orthopedic surgeries. And ovarian cyst removal PFSH Past Medical History Hx Anticoagulant Therapy: No Cardiovascular Problems: No Chemotherapy: No Cerebrovascular Accident: No Diabetes: No Diminished Hearing: No Endocrine: No Gastrointestinal Disorders: No Genitourinary: No Immune Disorder: No Implanted Vascular Access Dvce: No Musculoskeletal: No Neurologic: No Psychiatric: No Respiratory: No Immunizations Current: Yes Tetanus Vaccination: > 5 Years Influenza Vaccination: No ?: LMP: 08/21/17 : 1 Para: 0 Miscarriage: 1 : 0 Past Surgical History Hysterectomy: No Tonsillectomy: Yes Other Surgery: Yes (RIGHT ARM ARTERY REPAIR WITH LEFT LEG SVG) Social History Alcohol Use: Yes (quit recently) Tobacco Use: No (6 weeks ago) Substance Use: No Allergies-Medications (Allergen,Severity, Reaction): Coded Allergies: No Known Allergies (Unverified , 09/16/17) Reported Meds & Prescriptions Reported Meds & Active Scripts Active No Active Prescriptions or Reported Medications Review of Systems General / Constitutional: No: Fever Eyes: No: Visual changes HENT: No: Headaches Cardiovascular: No: Chest Pain or Discomfort Respiratory: No: Shortness of Breath Gastrointestinal: No: Abdominal Pain Genitourinary: Positive: Vaginal Bleeding Musculoskeletal: No: Pain Skin: No Rash Neurologic: No: Weakness Psychiatric: No: Depression Endocrine: No: Polydipsia Hematologic/Lymphatic: No: Easy Bruising Physical Exam Narrative GENERAL: SKIN: Warm and dry. HEAD: Atraumatic. Normocephalic. EYES: Pupils equal and round. No scleral icterus. No injection or drainage. ENT: No nasal bleeding or discharge. Mucous membranes pink and moist. NECK: Trachea midline. No JVD. CARDIOVASCULAR: Regular rate and rhythm. RESPIRATORY: No accessory muscle use. Clear to auscultation. Breath sounds equal bilaterally. GASTROINTESTINAL: Abdomen soft, non-tender, nondistended. MUSCULOSKELETAL: Extremities without clubbing, cyanosis, or edema. No obvious deformities. NEUROLOGICAL: Awake and alert. No obvious cranial nerve deficits. Motor grossly within normal limits. Five out of 5 muscle strength in the arms and legs. Normal speech. PSYCHIATRIC: Appropriate mood and affect; insight and judgment normal. Data Data Last Documented VS Vital Signs Date Time Temp Pulse Resp B/P (MAP) Pulse Ox O2 Delivery O2 Flow Rate FiO2 10/02/17 17:00 98.6 94 18 140/70 (93) 99 Orders Orders Beta Hcg (Quant/Titer) (10/02/17 18:31) Complete Blood Count With Diff (10/02/17 18:31) Comprehensive Metabolic Panel (10/02/17 18:31) Complete Rh (10/02/17 18:31) Iv Access Insert/Monitor (10/02/17 18:31) Ed Urine Pregnancytest Poc (10/02/17 18:31) Urinalysis - C+S If Indicated (10/02/17 18:31) Us Pelvis (Ques Pr/Ect)W Trans (10/02/17 ) Labs Laboratory Tests Test 10/02/17 18:30 White Blood Count 10.1 TH/MM3 Red Blood Count 4.22 MIL/MM3 Hemoglobin 12.2 GM/DL Hematocrit 35.8 % Mean Corpuscular Volume 84.9 FL Mean Corpuscular Hemoglobin 28.9 PG Mean Corpuscular Hemoglobin Concent 34.1 % Red Cell Distribution Width 13.4 % Platelet Count 266 TH/MM3 Mean Platelet Volume 9.2 FL Neutrophils (%) (Auto) 72.5 % Lymphocytes (%) (Auto) 19.2 % Monocytes (%) (Auto) 7.9 % Eosinophils (%) (Auto) 0.2 % Basophils (%) (Auto) 0.2 % Neutrophils # (Auto) 7.3 TH/MM3 Lymphocytes # (Auto) 2.0 TH/MM3 Monocytes # (Auto) 0.8 TH/MM3 Eosinophils # (Auto) 0.0 TH/MM3 Basophils # (Auto) 0.0 TH/MM3 CBC Comment DIFF FINAL Differential Comment Urine Color YELLOW Urine Turbidity CLEAR Urine pH 6.0 Urine Specific [place] 1.028 Urine Protein TRACE mg/dL Urine Glucose (UA) NEG mg/dL Urine Ketones NEG mg/dL Urine Occult Blood NEG Urine Nitrite NEG Urine Bilirubin NEG Urine Urobilinogen LESS THAN 2.0 MG/DL Urine Leukocyte Esterase NEG Urine RBC 4 /hpf Urine WBC 1 /hpf Urine Squamous Epithelial Cells 4 /hpf Urine Mucus FEW /lpf Microscopic Urinalysis Comment CULT NOT INDICATED Blood Urea Nitrogen 10 MG/DL Creatinine 0.57 MG/DL Random Glucose 59 MG/DL Total Protein 8.0 GM/DL Albumin 3.6 GM/DL Calcium Level 8.8 MG/DL Alkaline Phosphatase 63 U/L Aspartate Amino Transf (AST/SGOT) 15 U/L Alanine Aminotransferase (ALT/SGPT) 21 U/L Total Bilirubin 0.3 MG/DL Sodium Level 136 MEQ/L Potassium Level 3.4 MEQ/L Chloride Level 100 MEQ/L Carbon Dioxide Level 26.0 MEQ/L Anion Gap 10 MEQ/L Estimat Glomerular Filtration Rate 164 ML/MIN Human Chorionic Gonadotropin, Quant 55642 MIU/ML MDM Medical Decision Making Medical Screen Exam Complete: Yes Emergency Medical Condition: Yes Medical Record Reviewed: Yes Differential Diagnosis Threatened AB versus missed AB versus ectopic versus UTI Narrative Course CBC does not show any leukocytosis, anemia, normal platelet count, no left shift. UA is NOT consistent with UTI Electrolytes are all within normal limits, normal kidney and liver function. Quantitative hCG 23,668 Blood bank shows type and Rh to be B+ Ultrasounds her shows a viable IUP at 6 weeks and 2 days Diagnosis Primary Impression: Threatened Patient Instructions: General Instructions, Threatened Miscarriage (ED) Scripts No Active Prescriptions or Reported Meds Disposition: DISCHARGE HOME Condition: Stable Javier Claire MD Oct 02, 2017 18:37
[2017-10-02 19:22] LABS: AUTOMATED NEUTROPHIL # 7.3 TH/MM3 (1.8-7.7); BASOPHIL % 0.2 % (0.0-2.0); EOSINOPHIL % 0.2 % (0.0-4.0); HEMATOCRIT 35.8 % (35.0-46.0); HEMOGLOBIN 12.2 GM/DL (11.6-15.3); LYMPH % 19.2 % (9.0-44.0); MEAN CELL VOLUME 84.9 FL (80.0-100.0); MEAN CORPUSCULAR HEMOGLOBIN 28.9 PG (27.0-34.0); MEAN CORPUSCULAR HGB CONC 34.1 % (32.0-36.0); MEAN PLATELET VOLUME 9.2 FL (7.0-11.0); MONO % 7.9 % (0.0-8.0); MONOCYTE # 0.8 TH/MM3 (0-0.9); NEUT % 72.5 % (16.0-70.0); PLATELET COUNT 266 TH/MM3 (150-450); RED BLOOD COUNT 4.22 MIL/MM3 (4.00-5.30); RED CELL DISTRIBUTION WIDTH 13.4 % (11.6-17.2); WHITE BLOOD COUNT 10.1 TH/MM3 (4.0-11.0)
[2017-10-02 19:24] LABS: BILIRUBIN, URINE NEG (NEG); BLOOD, URINE NEG (NEG); GLUCOSE,URINE NEG (NEG); KETONE, URINE NEG (NEG); MUCUS URINE FEW /lpf (OCC); NITRITE,URINE NEG (NEG); SQUAMOUS EPITHELIAL CELL URINE 4 /hpf (0-5); URINE COLOR YELLOW (YELLW/STRAW); URINE LEUKOCYTE ESTERASE NEG (NEG)
[2017-10-02 19:38] LABS: ALBUMIN 3.6 GM/DL (3.4-5.0); AST (GOT) 15 U/L (16-38); BLOOD UREA NITROGEN 10 MG/DL (7-18); CALCIUM 8.8 MG/DL (8.5-10.1); CHLORIDE 100 MEQ/L (98-107); CREATININE 0.57 MG/DL (0.50-1.00); GLOMERULAR FILTRATION RATE 164 ML/MIN (>89); GLUCOSE,RANDOM 59 MG/DL (74-106); SODIUM (NA) 136 MEQ/L (136-145)
[2017-10-02 19:39] LABS: ALT (GPT) 21 U/L (9-42)
[2017-10-02 19:55] LABS: ALKALINE PHOSPHATASE 63 U/L (45-117); TOTAL BILIRUBIN ADULT 0.3 MG/DL (0.2-1.0)
--- NOTE | 2017-10-02 20:26 | RADRPT ---
EXAM DATE/TIME: 10/02/2017 18:55 [facility] COMPARISON: No previous studies available for comparison. INDICATIONS : Ectopic. LAB(S): Beta-hC MEDICAL HISTORY : Alcohol use. Tobacco use. SURGICAL HISTORY : Tonsillectomy. Right arm artery repair with left leg svg. ENCOUNTER: Initial ACUITY: 2 days PAIN SCORE: 4/10 LOCATION: Bilateral pelvis MEASUREMENTS: UTERUS: 8.5 x 5.6 x 5.1 cm ENDOMETRIAL STRIPE: 13 mm RIGHT OVARY: 3.5 x 3.8 x 2.5 cm LEFT OVARY: 2.3 x 2.3 x 1.2 cm FREE FLUID: Yes trace in cul de sac CROWN RUMP LENGTH: 0.5 = 6 WKS 2 DAYS FHR: 137 BPM FINDINGS: UTERUS: Viable IUP 6 weeks 2 day's RIGHT OVARY: 2.9 centers cyst LEFT OVARY: Ovary contains no mass or significant cystic lesion. MISCELLANEOUS: Trace free fluid in CONCLUSION: Viable IUP at 6 weeks 2 day's Burton Nolen MD FACR on October 02, 2017 at 20:23 Board Certified Radiologist. This report was verified electronically.
== END 2017-10-02 21:50 | disposition home or self-care (01) ==
LOC: NEPD 16:56
DX: O20.0 Threatened abortion (principal); Z3A.01 Less than 8 weeks gestation of pregnancy; Z87.891 Personal history of nicotine dependence
CPT/HCPCS: 76700; 76817; 80053; 81001; 84702; 84703; 85025; 86901; 99284

== ENCOUNTER 2017-12-04 16:17 | Emergency (ER) | payer MEDICAID ==
[~2017-12-04] VITALS: Ht 149.9 cm; Wt 88.0 kg
[2017-12-04 16:21] VITALS: BP 128/73; PULSE 97; RESP 18; TEMP 98.8; O2SAT 98
[2017-12-04] MEDS ORDERED: SODIUM CHLOR 0.9% 1000 ML INJ 1,000 ML IV ONE (17:04)
[2017-12-04] MEDS ORDERED: SODIUM CHLORIDE 0.9% FLUSH 10 ML FLUSH IVF PRN (17:15)
--- NOTE | 2017-12-04 17:34 | PD ---
HPI Chief Complaint: Flank/Kidney Pain Time Seen by Provider: 17:03 Travel History International Travel<30 days: No Contact w/Intl Traveler<30days: No Traveled to known affect area: No History of Present Illness HPI Patient is a 22-year-old female presenting to the emergency department for evaluation of right lower back pain and lower abdominal cramping. Patient reports urinary frequency but denies any dysuria. She states the pain in her back is on the lower right side, it started 2 days ago. The pain is an 8 out of 10. Patient states she has not taken anything for the pain because she is . She also reports subjective fevers and chills. She states due to the pain she feels nauseated at times. She denies any vomiting, vaginal bleeding or discharge. Patient has had care but no formal ultrasound. Symptom onset was gradual, symptoms are moderate in nature. There are no alleviating factors. Pain is exacerbated with movement and changing of positions. PFSH Past Medical History Hx Anticoagulant Therapy: No Neurologic: No Psychiatric: No Respiratory: No Immunizations Current: Yes ?: : 1 Para: 0 Miscarriage: 1 : 0 Past Surgical History Hysterectomy: No Tonsillectomy: Yes Other Surgery: Yes (RIGHT ARM ARTERY REPAIR WITH LEFT LEG SVG) Social History Alcohol Use: Yes (quit recently) Tobacco Use: No (6 weeks ago) Substance Use: No Allergies-Medications (Allergen,Severity, Reaction): Coded Allergies: No Known Allergies (Unverified , 12/04/17) Reported Meds & Prescriptions Reported Meds & Active Scripts Active No Active Prescriptions or Reported Medications Review of Systems Except as stated in HPI: all other systems reviewed are Neg General / Constitutional: Positive: Fever, Chills Gastrointestinal: Positive: Nausea, Abdominal Pain (Cramping) Genitourinary: Positive: Frequency, No: Dysuria, Pelvic Pain, Discharge, Vaginal Bleeding Physical Exam Narrative GENERAL: Well-developed, well-nourished, alert -[place] female. Presenting in no acute distress. SKIN: Warm and dry. HEAD: Atraumatic. Normocephalic. EYES: Pupils equal and round. No scleral icterus. No injection or drainage. ENT: No nasal bleeding or discharge. Mucous membranes pink and moist. NECK: Trachea midline. No JVD. CARDIOVASCULAR: Regular rate and rhythm. RESPIRATORY: No accessory muscle use. Clear to auscultation. Breath sounds equal bilaterally. GASTROINTESTINAL: Abdomen soft, nondistended. Hepatic and splenic margins not palpable. Mildly tender to palpation in suprapubic region. No CVAT bilaterally. Tenderness to palpation to right lower lumbar region over the right SI joint. MUSCULOSKELETAL: Extremities without clubbing, cyanosis, or edema. No obvious deformities. NEUROLOGICAL: Awake and alert. No obvious cranial nerve deficits. Motor grossly within normal limits. Five out of 5 muscle strength in the arms and legs. Normal speech. PSYCHIATRIC: Appropriate mood and affect; insight and judgment normal. Data Data Last Documented VS Vital Signs Date Time Temp Pulse Resp B/P (MAP) Pulse Ox O2 Delivery O2 Flow Rate FiO2 12/04/17 16:21 98.8 97 18 128/73 (91) 98 Orders Orders Complete Blood Count With Diff (12/04/17 17:04) Comprehensive Metabolic Panel (12/04/17 17:04) Urinalysis - C+S If Indicated (12/04/17 17:04) Ecg Monitoring (12/04/17 17:04) Iv Access Insert/Monitor (12/04/17 17:04) Sodium Chloride 0.9% Flush (Ns Flush) (12/04/17 17:15) Sodium Chlor 0.9% 1000 Ml Inj (Ns 1000 M (12/04/17 17:04) Urine Culture (12/04/17 17:20) Ceftriaxone Inj (Rocephin Inj) (12/04/17 18:45) Labs Laboratory Tests Test 12/04/17 17:20 12/04/17 17:40 Urine Color YELLOW Urine Turbidity HAZY Urine pH 6.5 Urine Specific [place] 1.015 Urine Protein 30 mg/dL Urine Glucose (UA) NEG mg/dL Urine Ketones 150 mg/dL Urine Occult Blood SMALL Urine Nitrite NEG Urine Bilirubin NEG Urine Urobilinogen LESS THAN 2.0 MG/DL Urine Leukocyte Esterase LARGE Urine RBC 1 /hpf Urine WBC 39 /hpf Urine Squamous Epithelial Cells 4 /hpf Urine Transitional Epithelial Cells 2 /hpf Urine Bacteria FEW /hpf Urine Mucus FEW /lpf Microscopic Urinalysis Comment CULTURE INDICATED White Blood Count 13.1 TH/MM3 Red Blood Count 4.36 MIL/MM3 Hemoglobin 12.1 GM/DL Hematocrit 35.6 % Mean Corpuscular Volume 81.6 FL Mean Corpuscular Hemoglobin 27.7 PG Mean Corpuscular Hemoglobin Concent 34.0 % Red Cell Distribution Width 12.4 % Platelet Count 268 TH/MM3 Mean Platelet Volume 8.9 FL Neutrophils (%) (Auto) 83.4 % Lymphocytes (%) (Auto) 9.6 % Monocytes (%) (Auto) 6.8 % Eosinophils (%) (Auto) 0.1 % Basophils (%) (Auto) 0.1 % Neutrophils # (Auto) 10.9 TH/MM3 Lymphocytes # (Auto) 1.3 TH/MM3 Monocytes # (Auto) 0.9 TH/MM3 Eosinophils # (Auto) 0.0 TH/MM3 Basophils # (Auto) 0.0 TH/MM3 CBC Comment DIFF FINAL Differential Comment Blood Urea Nitrogen 4 MG/DL Creatinine 0.59 MG/DL Random Glucose 96 MG/DL Total Protein 7.8 GM/DL Albumin 3.1 GM/DL Calcium Level 8.9 MG/DL Alkaline Phosphatase 70 U/L Aspartate Amino Transf (AST/SGOT) 15 U/L Alanine Aminotransferase (ALT/SGPT) 13 U/L Total Bilirubin 0.4 MG/DL Sodium Level 135 MEQ/L Potassium Level 3.8 MEQ/L Chloride Level 102 MEQ/L Carbon Dioxide Level 24.9 MEQ/L Anion Gap 8 MEQ/L Estimat Glomerular Filtration Rate 156 ML/MIN [facility] Medical Decision Making Medical Screen Exam Complete: Yes Emergency Medical Condition: Yes Interpretation(s) Laboratory Tests Test 12/04/17 17:20 12/04/17 17:40 Urine Color YELLOW Urine Turbidity HAZY Urine pH 6.5 Urine Specific [place] 1.015 Urine Protein 30 mg/dL Urine Glucose (UA) NEG mg/dL Urine Ketones 150 mg/dL Urine Occult Blood SMALL Urine Nitrite NEG Urine Bilirubin NEG Urine Urobilinogen LESS THAN 2.0 MG/DL Urine Leukocyte Esterase LARGE Urine RBC 1 /hpf Urine WBC 39 /hpf Urine Squamous Epithelial Cells 4 /hpf Urine Transitional Epithelial Cells 2 /hpf Urine Bacteria FEW /hpf Urine Mucus FEW /lpf Microscopic Urinalysis Comment CULTURE INDICATED White Blood Count 13.1 TH/MM3 Red Blood Count 4.36 MIL/MM3 Hemoglobin 12.1 GM/DL Hematocrit 35.6 % Mean Corpuscular Volume 81.6 FL Mean Corpuscular Hemoglobin 27.7 PG Mean Corpuscular Hemoglobin Concent 34.0 % Red Cell Distribution Width 12.4 % Platelet Count 268 TH/MM3 Mean Platelet Volume 8.9 FL Neutrophils (%) (Auto) 83.4 % Lymphocytes (%) (Auto) 9.6 % Monocytes (%) (Auto) 6.8 % Eosinophils (%) (Auto) 0.1 % Basophils (%) (Auto) 0.1 % Neutrophils # (Auto) 10.9 TH/MM3 Lymphocytes # (Auto) 1.3 TH/MM3 Monocytes # (Auto) 0.9 TH/MM3 Eosinophils # (Auto) 0.0 TH/MM3 Basophils # (Auto) 0.0 TH/MM3 CBC Comment DIFF FINAL Differential Comment Blood Urea Nitrogen 4 MG/DL Creatinine 0.59 MG/DL Random Glucose 96 MG/DL Total Protein 7.8 GM/DL Albumin 3.1 GM/DL Calcium Level 8.9 MG/DL Alkaline Phosphatase 70 U/L Aspartate Amino Transf (AST/SGOT) 15 U/L Alanine Aminotransferase (ALT/SGPT) 13 U/L Total Bilirubin 0.4 MG/DL Sodium Level 135 MEQ/L Potassium Level 3.8 MEQ/L Chloride Level 102 MEQ/L Carbon Dioxide Level 24.9 MEQ/L Anion Gap 8 MEQ/L Estimat Glomerular Filtration Rate 156 ML/MIN Vital Signs Date Time Temp Pulse Resp B/P (MAP) Pulse Ox O2 Delivery O2 Flow Rate FiO2 12/04/17 16:21 98.8 97 18 128/73 (91) 98 Differential Diagnosis UTI versus pyelonephritis versus muscle strain versus muscle spasm versus kidney stone versus other Narrative Course Patient is well-appearing 22-year-old female presenting for evaluation of right lower back pain and suprapubic cramping along with frequency. Initial exam appears consistent with a musculoskeletal strain however due to the suprapubic cramping and urinary frequency will rule out urinary tract infection. Patient has no CVAT on exam. She is otherwise well-appearing and her vital signs are stable. She has no related complaints at this time. Bedside ultrasound was performed, heart tones and movement observed. CBC with a white count of 13.1, chemistry is unremarkable, urinalysis is consistent with a urinary tract infection. Patient was given 1 g of Rocephin IV in the emergency department. Patient will be discharged home on Keflex. She was encouraged to complete full course of therapy even if she begins to feel better. She was advised to follow-up with her DIRECTOR OF INFECTION PREVENTION as scheduled. She was further encouraged to return to emergency department for any new or worsening symptoms. Patient verbalized understanding of these instructions. Patient stable for discharge. Diagnosis Primary Impression: Urinary tract infection Qualified Codes: N39.0 - Urinary tract infection, site not specified; R31.9 - Hematuria, unspecified Referrals: Upsetter Setter Up As scheduled Patient Instructions: General Instructions, at 15 to 18 Weeks (DC), Urinary Tract Infection in (ED) Additional Instructions: Follow-up with your DIRECTOR OF INFECTION PREVENTION as scheduled Complete full course of antibiotics as prescribed even if you begin to feel better You may take [id number] Tylenol/acetaminophen as needed and as directed for pain Return to emergency department immediately for any new or worsening symptoms Med/Other Pt SpecificInfo: Prescription(s) given Scripts Vit-Iron Carbonyl ( Plus Iron 29-1 mg) 29 Mg Iron-1 Mg Tab 1 TAB PO DAILY for Nutritional Supplement, #30 TAB 0 Refills Prov: Maria A Bolivar 12/04/17 Cephalexin (Keflex) 500 Mg Cap 500 MG PO Q12H for Infection for 7 Days, #14 CAP 0 Refills Prov: Maria A Bolivar 12/04/17 Disposition: 01 DISCHARGE HOME Condition: Stable Maria A Bolivar December 04, 2017 17:34
[2017-12-04 18:11] LABS: AUTOMATED NEUTROPHIL # 10.9 TH/MM3 (1.8-7.7); BASOPHIL % 0.1 % (0.0-2.0); EOSINOPHIL % 0.1 % (0.0-4.0); HEMATOCRIT 35.6 % (35.0-46.0); HEMOGLOBIN 12.1 GM/DL (11.6-15.3); LYMPH % 9.6 % (9.0-44.0); LYMPHOCYTE # 1.3 TH/MM3 (1.0-4.8); MEAN CELL VOLUME 81.6 FL (80.0-100.0); MEAN CORPUSCULAR HEMOGLOBIN 27.7 PG (27.0-34.0); MEAN PLATELET VOLUME 8.9 FL (7.0-11.0); MONO % 6.8 % (0.0-8.0); MONOCYTE # 0.9 TH/MM3 (0-0.9); NEUT % 83.4 % (16.0-70.0); PLATELET COUNT 268 TH/MM3 (150-450); RED BLOOD COUNT 4.36 MIL/MM3 (4.00-5.30); RED CELL DISTRIBUTION WIDTH 12.4 % (11.6-17.2); WHITE BLOOD COUNT 13.1 TH/MM3 (4.0-11.0)
[2017-12-04 18:19] LABS: BACTERIA, URINE FEW /hpf; BILIRUBIN, URINE NEG (NEG); BLOOD, URINE SMALL (NEG); GLUCOSE,URINE NEG (NEG); KETONE, URINE 150 mg/dL (NEG); MUCUS URINE FEW /lpf (OCC); NITRITE,URINE NEG (NEG); PH, URINE 6.5 (5.0-8.5); SQUAMOUS EPITHELIAL CELL URINE 4 /hpf (0-5); TRANSITIONAL EPI CELLS, URINE 2 /hpf; URINE COLOR YELLOW (YELLW/STRAW); URINE LEUKOCYTE ESTERASE LARGE (NEG)
[2017-12-04 18:34] LABS: ALKALINE PHOSPHATASE 70 U/L (45-117); ALT (GPT) 13 U/L (10-53); TOTAL BILIRUBIN ADULT 0.4 MG/DL (0.2-1.0); TOTAL PROTEIN 7.8 GM/DL (6.4-8.2)
[2017-12-04 18:37] LABS: ALBUMIN 3.1 GM/DL (3.4-5.0); AST (GOT) 15 U/L (15-37); BICARBONATE 24.9 MEQ/L (21.0-32.0); BLOOD UREA NITROGEN 4 MG/DL (7-18); CALCIUM 8.9 MG/DL (8.5-10.1); CHLORIDE 102 MEQ/L (98-107); CREATININE 0.59 MG/DL (0.50-1.00); GLOMERULAR FILTRATION RATE 156 ML/MIN (>89); GLUCOSE,RANDOM 96 MG/DL (74-106); SODIUM (NA) 135 MEQ/L (136-145)
[2017-12-04] MEDS ORDERED: cefTRIAXone INJ 1,000 MG in SODIUM CHLORIDE 0.9% INJ 100 ML IV ONE (18:45)
[2017-12-04] MEDS ORDERED: PREN29TA PO (18:47)
[2017-12-04] MEDS ORDERED: CEPH-460 PO (18:47)
--- NOTE | 2017-12-04 19:20 | PD ---
Data Data Last Documented VS Vital Signs Date Time Temp Pulse Resp B/P (MAP) Pulse Ox O2 Delivery O2 Flow Rate FiO2 12/04/17 16:21 98.8 97 18 128/73 (91) 98 Orders Orders Complete Blood Count With Diff (12/04/17 17:04) Comprehensive Metabolic Panel (12/04/17 17:04) Urinalysis - C+S If Indicated (12/04/17 17:04) Ecg Monitoring (12/04/17 17:04) Iv Access Insert/Monitor (12/04/17 17:04) Sodium Chloride 0.9% Flush (Ns Flush) (12/04/17 17:15) Sodium Chlor 0.9% 1000 Ml Inj (Ns 1000 M (12/04/17 17:04) Urine Culture (12/04/17 17:20) Ceftriaxone Inj (Rocephin Inj) (12/04/17 18:45) Ed Discharge Order (12/04/17 18:49) Labs Laboratory Tests Test 12/04/17 17:20 12/04/17 17:40 Urine Color YELLOW Urine Turbidity HAZY Urine pH 6.5 Urine Specific [place] 1.015 Urine Protein 30 mg/dL Urine Glucose (UA) NEG mg/dL Urine Ketones 150 mg/dL Urine Occult Blood SMALL Urine Nitrite NEG Urine Bilirubin NEG Urine Urobilinogen LESS THAN 2.0 MG/DL Urine Leukocyte Esterase LARGE Urine RBC 1 /hpf Urine WBC 39 /hpf Urine Squamous Epithelial Cells 4 /hpf Urine Transitional Epithelial Cells 2 /hpf Urine Bacteria FEW /hpf Urine Mucus FEW /lpf Microscopic Urinalysis Comment CULTURE INDICATED White Blood Count 13.1 TH/MM3 Red Blood Count 4.36 MIL/MM3 Hemoglobin 12.1 GM/DL Hematocrit 35.6 % Mean Corpuscular Volume 81.6 FL Mean Corpuscular Hemoglobin 27.7 PG Mean Corpuscular Hemoglobin Concent 34.0 % Red Cell Distribution Width 12.4 % Platelet Count 268 TH/MM3 Mean Platelet Volume 8.9 FL Neutrophils (%) (Auto) 83.4 % Lymphocytes (%) (Auto) 9.6 % Monocytes (%) (Auto) 6.8 % Eosinophils (%) (Auto) 0.1 % Basophils (%) (Auto) 0.1 % Neutrophils # (Auto) 10.9 TH/MM3 Lymphocytes # (Auto) 1.3 TH/MM3 Monocytes # (Auto) 0.9 TH/MM3 Eosinophils # (Auto) 0.0 TH/MM3 Basophils # (Auto) 0.0 TH/MM3 CBC Comment DIFF FINAL Differential Comment Blood Urea Nitrogen 4 MG/DL Creatinine 0.59 MG/DL Random Glucose 96 MG/DL Total Protein 7.8 GM/DL Albumin 3.1 GM/DL Calcium Level 8.9 MG/DL Alkaline Phosphatase 70 U/L Aspartate Amino Transf (AST/SGOT) 15 U/L Alanine Aminotransferase (ALT/SGPT) 13 U/L Total Bilirubin 0.4 MG/DL Sodium Level 135 MEQ/L Potassium Level 3.8 MEQ/L Chloride Level 102 MEQ/L Carbon Dioxide Level 24.9 MEQ/L Anion Gap 8 MEQ/L Estimat Glomerular Filtration Rate 156 ML/MIN MDM Supervised Visit with GAGE: Yes Narrative Course I, Dr. Lea, have reviewed the advance practice practitioner's documentation and am in agreement, met with the patient face to face, made the diagnosis, and the medical decision making was done by me. *My assessment and Findings: Workup is reviewed with the patient. Labs reasonably normal. She has pyuria and slight bacteriuria.given her status, she is given antibiotics. Recommend follow up closely. Diagnosis Primary Impression: Urinary tract infection Qualified Codes: N39.0 - Urinary tract infection, site not specified; R31.9 - Hematuria, unspecified Additional Impression: Qualified Codes: Z3A.15 - 15 weeks gestation of Referrals: Beauty Therapist As scheduled Patient Instructions: General Instructions, Urinary Tract Infection in (ED), at 15 to 18 Weeks (DC) Departure Forms: Tests/Procedures Additional Instruction: Follow-up with your MARKER MACHINE ATTENDANT as scheduled Complete full course of antibiotics as prescribed even if you begin to feel better You may take [id number] Tylenol/acetaminophen as needed and as directed for pain Return to emergency department immediately for any new or worsening symptoms Scripts Vit-Iron Carbonyl ( Plus Iron 29-1 mg) 29 Mg Iron-1 Mg Tab 1 TAB PO DAILY for Nutritional Supplement, #30 TAB 0 Refills Prov: Maria A Bolivar 12/04/17 Cephalexin (Keflex) 500 Mg Cap 500 MG PO Q12H for Infection for 7 Days, #14 CAP 0 Refills Prov: Maria A Bolivar 12/04/17 Disposition: 01 DISCHARGE HOME Condition: Stable Pk Lea MD December 04, 2017 19:20
== END 2017-12-04 19:20 | disposition home or self-care (01) ==
LOC: NEPD 16:17
DX: O23.42 Unspecified infection of urinary tract in pregnancy, second trimester (principal); Z3A.15 15 weeks gestation of pregnancy
CPT/HCPCS: 80053; 81001; 85025; 86403; 87077; 87086; 87186; 96374; 99284; J0696; J7030